=== PATIENT | female | born 1950 ===

== ENCOUNTER 2018-02-15 16:11 | Observation (INO) | payer MEDICARE, MEDICAID ==
--- OUTSIDE RECORDS SUMMARY | 2018-02-15 20:13 | XMS REPORT ---
:1950 External Reference #:[id number] Author Organization [facility] 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 [place] [address] Medicaid Expires: 2017 Policy Number: [id number] Medicaid Goldie Fernandez PayID: [id number] [address] [place] [address] Medicaid Expires: 2014 Policy Number: [id number] Medicaid Goldie Fernandez PayID: [id number] [address] [place] [address] Problems Date Description Provider Status Onset: 02/17/2016 Hyperlipidemia Kasie Shankar, Active MSN, PERIOPERATIVE ASSISTANT Onset: 02/17/2016 Essential hypertension Kasie Shankar, Active MSN, PERIOPERATIVE ASSISTANT Onset: 03/23/2016 Anxiety state Ben Gutiérrez M.D., Active FACC Onset: 03/23/2016 Dyspnea Ben Gutiérrez M.D., Active FACC Onset: 03/23/2016 Chronic obstructive pulmonary Ben Gutiérrez M.D., Active disease w (acute) exacerbation FACC Onset: 05/03/2017 Carbuncle of upper arm and Malissa Fisher M.D. Active forearm Onset: 05/09/2017 Palpitations Ben Gutiérrez M.D., Active FACC Onset: 05/09/2017 Malaise and fatigue Ben Gutiérrez M.D., Active FACC Onset: 05/09/2017 Chronic obstructive lung disease Ben Gutiérrez M.D. 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 Work Status Retired ADL's/IADL's Independent with all ADL's ADL's/IADL's Independent with all IADL's Cigarette Use Quit ETOH Use Denies alcohol use Smoking Patient is a former smoker 2011 quit Recreational Drug Use Marijuana Recreational Drug Use lsd Daily Caffeine Patient consumes minimal amounts of 2 cups daily caffeine Exercise Type/Frequency Does not exercise walking some Allergies, Adverse Reactions, Alerts Date Description Reaction Status Severity Comments 11/13/2017 NKDA active 12/15/2014 NKDA inactive Medications Medication Date Status Form Strength Qnty SIG Indications Ordering Provider Gabapentin 12/19 Active Tablets 600mg 90tab 1 tabs by mouth G62.9 Halley, s three times a Shelli, day PNP-BC, PERIOPERATIVE ASSISTANT, Ibclc Atorvastatin 09/26 Active Tablets 20mg 90tab 1 by mouth E78.5 Enedina Calcium s every day MD Riaz Duloxetine HCL 07/[address] 30mg 1 by mouth Natalia, Part every day Aris Leonardo Benzonatate 07/16 Active Capsules 200mg 60cap take 1 capsule J20.9 s 3 times daily Shelli, as needed for a PNP-BC, cough. PERIOPERATIVE ASSISTANT, Ibclc Acetaminophen 09/04 Active Tablets 500mg 90tab 2 tabs by mouth G62.9 s every 8 hours Shelli, as needed pain, PNP-BC, mdd=3g PERIOPERATIVE ASSISTANT, Ibclc Breo Ellipta 07/19 Active Aerosol 200-25mcg 60uni Inhale One puff J44.9 Kheti, /2016 /Inh ts By Mouth Every MD Rehan Day Propranolol 06/05 Active Tablets 10mg 180ta take one tablet Halley bs by mouth twice Shelli, a day PNP-BC, PERIOPERATIVE ASSISTANT, Ibclc Omeprazole 06/05 Active Capsules 20mg 180ca take one DR ps capsule by Shelli, mouth twice a PNP-BC, day 30 minutes PERIOPERATIVE ASSISTANT, before meals Ibclc for gastroesophagea l reflux disease Incruse 05/15 Active Aerosol 62.5mcg/I 30uni Inhale 1 puff J43.2 Kheti, Ellip nh ts Once Daily MD Rehan Clonazepam Active Tablets 0.5mg 1 po tid prn Unknown /0000 Aspirin Adult Active Tablets 81mg 1 by mouth Unknown Low Dose /0000 DR every day Viibryd Active Tablets 10mg one tablet by Unknown /0000 mouth every day x 7 days, then two by mouth every day x 7 days Mupirocin 05/03 Hx Ointment 2% 22gm apply to S21.001A affected area Malissa, three times a M.D. day Azithromycin 02/12 Hx Tablets 250mg 6tabs 1 tab take 2 tabs x daily Malissa, - days then 1 for M.D. 02/20 Hydroxyzine 12/26 Hx Tablets 25mg 60tab 1 tab by mouth L30.9 Clune, HCL s every 4 hours Jenniferl - as needed for eigh, PERIOPERATIVE ASSISTANT 01/17 itching *june sedating Gabapentin 10/17 Hx Capsules 400mg 270ca take one G62.9 ps capsule by Shelli, - mouth three PNP-BC, 12/19 times a day PERIOPERATIVE ASSISTANT, /2018 Ibclc Gabapentin 09/04 Hx Capsules 300mg 60cap 1 tab by mouth G62.9 Natalia, s three times Malissa, - M.D. 10/17 Golytely 04/17 Hx Solution 236gm 4000m drink half the Z. Rec l evening before , Paul, - and half the 06/05 morning of the procedure (1 cup every 10') Dulcolax 04/17 Hx Tablets 5mg 4tabs [address] fung 8pm the day , Paul, - before the 06/05 procedure Magnesium 04/17 Hx Solution 1.745GM/3 296ml Z01.21 0ML , Paul, - 06/05 Azithromycin 03/29 Hx Tablets 250mg 6tabs take 2 tablets J44.0 Natalia by mouth one Malissa, - time for M.D. 04/03 infection then take 1 tablet by mouth daily for 4 days for infection Prednisone 03/29 Hx Tablets 20mg 10tab take 2 tablet J44.0 Natalia s by mouth daily Malissa, - for 5 days for M.D. 04/03 COPD exacerbation Sulfamethoxazo 03/08 Hx Tablets 800-160mg 6tabs take 1 tablet Natalia, /Trimethopri by mouth every Malissarashi DS - 12 hours for 3 M.D. 03/11 days for urinary tract infection Isosorbide 02/16 Hx Tablets 10mg 30tab 1 by mouth R07.9 Shankar, Mononitrate s every day Kasie - Simonetta 03/23 , MSN, PERIOPERATIVE ASSISTANT Prednisone 05/15 Hx Tablets 10mg 20tab take 40 mg once J43.2 Kimmy, s daily for 5 MD Rehan days. Levofloxacin 05/15 Hx Tablets 750mg 5tabs Take 1 tablet J43.2 Kimmy, daily for 5 MD Rehan days. Cymbalta [address] 30mg 1 by mouth Unknown /0000 Part every day Atrovent HFA Hx Aerosol 17mcg/Act inhale 2 puffs Unknown /0000 four times a day if needed Advair Diskus 00 Hx Aerosol 500-50mcg 1 puff twice a Unknown /0000 /Dose day - 07/19 Dulox[address] HCL Hx Caps DR 30mg 1 by mouth Unknown /0000 Part every day Omeprazole Hx Capsules 20mg 1 by mouth Unknown /0000 DR every day - 03/06 Ranitidine HCL Hx Capsules 150mg 1 by mouth Unknown /0000 twice a day prn - 06/05 Propranolol Hx Tablets 10mg take 1 tablet Unknown HCL /0000 by mouth twice - a day 06/05 Ventolin HFA Hx Aerosol 108(90Bas 8gm take 1-2 puffs Natalia, /0000 e) every 6 hours Gerardo Leonardo/Janusz as needed for M.DMonica 07/25 shortness of /2018 breath. Trintellix Hx Tablets 20mg Unknown /0000 - 03/06 Meloxicam Hx Tablets 15mg 30tab 1 by mouth Natalia, /0000 s every day Aris Leonardo Levofloxacin Hx Tablets 750mg 1 by mouth Unknown /0000 every day until gone Viibryd Hx Tablets 40mg 1 by mouth Unknown /0000 every day - 01/17 Lamotrigine ER Hx Tablets 25mg 1 po q hs , Unknown /0000 ER 24HR tapering dose - 03/29 Lamotrigine ER Hx Tablets 25mg Unknown /0000 ER 24HR - 04/17 Lamotrigine Hx Tablets 25mg 1 po bid John, / Karissa - V., WARM IN WORKER 09/04 Ranitidine HCL Hx Tablets 150mg Gallerani /0000 , ALISA Gutiérrez Oxygen /00 Hx night only Unknown /0000 - 07/25 Duloxetine HCL Hx Caps DR 20mg 1 po qd Unknown /0000 Part - 07/18 Quetiapine Hx Tablets 25mg John, Fumarate /0000 Karissa - V., WARM IN WORKER 01/17 Quetiapine Hx Tablets 25mg take 1 by mouth Unknown Fumarate /0000 at bedtime - 05/03 Immunizations CPT Code Status Date Vaccine Lot # [id number] Given 10/12/2017 Influenza High Dose [id number] Given 10/17/2016 Influenza High Dose [id number] Vital Signs Date Vital Result Comment 01/20/2018 BP Systolic 130 mmHg BP Diastolic 68 mmHg Body Temperature 98.1 F Heart Rate 63 /min O2 % BldC Oximetry 94 % Pain Level 0 12/19/2017 BP Systolic Sitting Left Arm 110 mmHg BP Diastolic Sitting Left Arm 68 mmHg Body Temperature 97.9 F Heart Rate 65 /min Weight 202.00 lb O2 % BldC Oximetry 92 % 11/13/2017 BP Systolic 116 mmHg BP Diastolic 60 mmHg Body Temperature 98.5 F Heart Rate 59 /min Height 63 inches 5'3" Weight 208.00 lb BMI (Body Mass Index) 36.8 kg/m2 BSA (Body Surface Area) 1.97 m2 Brule body weight in kilograms 52 O2 % BldC Oximetry 91 % Pain Level 2 09/26/2017 BP Systolic Sitting Left Arm 126 mmHg BP Diastolic Sitting Left Arm 78 mmHg Body Temperature 96.1 F Height 63 inches 5'3" Weight 202.25 lb BMI (Body Mass Index) 35.8 kg/m2 BSA (Body Surface Area) 1.94 m2 Brule body weight in kilograms 52 07/18/2017 BP Systolic Sitting Left Arm 118 mmHg BP Diastolic Sitting Left Arm 78 mmHg Body Temperature 97.5 F Heart Rate 74 /min Height 63 inches 5'3" Weight 201.00 lb BMI (Body Mass Index) 35.6 kg/m2 BSA (Body Surface Area) 1.94 m2 Brule body weight in kilograms 52 07/16/2017 BP Systolic Sitting Left Arm 103 mmHg BP Diastolic Sitting Left Arm 70 mmHg Body Temperature 97.8 F Heart Rate 58 /min Respiratory Rate 18 /min Height 63 inches 5'3" Weight 200.00 lb BMI (Body Mass Index) 35.4 kg/m2 BSA (Body Surface Area) 1.93 m2 Brule body weight in kilograms 52 O2 % BldC Oximetry 93 % 05/09/2017 BP Systolic Sitting Left Arm 110 mmHg BP Diastolic Sitting Left Arm 72 mmHg Heart Rate 56 /min Respiratory Rate 16 /min Height 63 inches 5'3" Weight 195.00 lb BMI (Body Mass Index) 34.5 kg/m2 BSA (Body Surface Area) 1.91 m2 Brule body weight in kilograms 52 05/03/2017 BP Systolic 122 mmHg BP Diastolic 78 mmHg Body Temperature 97.4 F Heart Rate 62 /min Height 63 inches 5'3" Weight 198.00 lb BMI (Body Mass Index) 35.1 kg/m2 BSA (Body Surface Area) 1.93 m2 Brule body weight in kilograms 52 O2 % BldC Oximetry 93 % 03/27/2017 BP Systolic Sitting Left Arm 128 mmHg BP Diastolic Sitting Left Arm 82 mmHg Heart Rate 55 /min Respiratory Rate 16 /min Height 63 inches 5'3" Weight 197.00 lb BMI (Body Mass Index) 34.9 kg/m2 BSA (Body Surface Area) 1.92 m2 Brule body weight in kilograms 52 02/20/2017 BP Systolic Sitting Left Arm 120 mmHg BP Diastolic Sitting Left Arm 82 mmHg Body Temperature 97.6 F Height 63 inches 5'3" Weight 198.25 lb with boots BMI (Body Mass Index) 35.1 kg/m2 BSA (Body Surface Area) 1.93 m2 Brule body weight in kilograms 52 01/17/2017 BP Systolic 128 mmHg BP Diastolic 80 mmHg Heart Rate 88 /min Height 63 inches 5'3" Weight 197.25 lb BMI (Body Mass Index) 34.9 kg/m2 BSA (Body Surface Area) 1.92 m2 Brule body weight in kilograms 52 01/14/2017 BP Systolic Sitting Left Arm 110 mmHg BP Diastolic Sitting Left Arm 70 mmHg Heart Rate 62 /min Respiratory Rate 16 /min Height 63 inches 5'3" Weight 197.00 lb BMI (Body Mass Index) 34.9 kg/m2 BSA (Body Surface Area) 1.92 m2 Brule body weight in kilograms 52 O2 % BldC Oximetry 93 % 12/26/2016 BP Systolic Sitting Left Arm 128 mmHg BP Diastolic Sitting Left Arm 76 mmHg Heart Rate 88 /min Respiratory Rate 20 /min Height 63 inches 5'3" Weight 201.00 lb BMI (Body Mass Index) 35.6 kg/m2 BSA (Body Surface Area) 1.94 m2 Brule body weight in kilograms 52 10/17/2016 BP Systolic Sitting Left Arm 146 mmHg large cuff BP Diastolic Sitting Left Arm 84 mmHg large cuff Height 63 inches 5'3" Weight 196.38 lb BMI (Body Mass Index) 34.8 kg/m2 BSA (Body Surface Area) 1.92 m2 Brule body weight in kilograms 52 09/04/2016 BP Systolic 136 mmHg BP Diastolic 74 mmHg Heart Rate 62 /min Height 63 inches 5'3" Weight 194.00 lb BMI (Body Mass Index) 34.4 kg/m2 BSA (Body Surface Area) 1.91 m2 Brule body weight in kilograms 52 07/24/2016 BP Systolic Sitting Left Arm 100 mmHg BP Diastolic Sitting Left Arm 70 mmHg Heart Rate 64 /min Respiratory Rate 18 /min Height 63 inches 5'3" Weight 196.00 lb BMI (Body Mass Index) 34.7 kg/m2 BSA (Body Surface Area) 1.92 m2 Brule body weight in kilograms 52 07/19/2016 BP Systolic Sitting Left Arm 118 mmHg BP Diastolic Sitting Left Arm 88 mmHg Heart Rate 66 /min Respiratory Rate 20 /min Height 63 inches 5'3" Weight 197.00 lb BMI (Body Mass Index) 34.9 kg/m2 BSA (Body Surface Area) 1.92 m2 Brule body weight in kilograms 52 O2 % BldC Oximetry 93 % 07/05/2016 BP Systolic Sitting Left Arm 112 mmHg BP Diastolic Sitting Left Arm 68 mmHg Body Temperature 97.9 F Heart Rate 58 /min Weight 198.00 lb O2 % BldC Oximetry 95 % Ra 06/05/2016 BP Systolic Sitting Left Arm 138 mmHg BP Diastolic Sitting Left Arm 70 mmHg Heart Rate 62 /min Height 63 inches 5'3" Weight 194.38 lb BMI (Body Mass Index) 34.4 kg/m2 BSA (Body Surface Area) 1.91 m2 Brule body weight in kilograms 52 04/17/2016 BP Systolic 140 mmHg BP Diastolic 74 mmHg Heart Rate 56 /min Weight 197.00 lb 03/29/2016 BP Systolic 138 mmHg BP Diastolic 70 mmHg Body Temperature 98.0 F Heart Rate 63 /min Respiratory Rate 18 /min Height 63 inches 5'3" Weight 197.00 lb BMI (Body Mass Index) 34.9 kg/m2 BSA (Body Surface Area) 1.92 m2 O2 % BldC Oximetry 94 % 2L AT Night 03/23/2016 BP Systolic Sitting Left Arm 120 mmHg BP Diastolic Sitting Left Arm 78 mmHg Heart Rate 60 /min Respiratory Rate 16 /min Height 63 inches 5'3" Weight 197.00 lb BMI (Body Mass Index) 34.9 kg/m2 BSA (Body Surface Area) 1.92 m2 03/06/2016 BP Systolic 146 mmHg BP Diastolic 78 mmHg BP Systolic Sitting Right Arm 128 mmHg recheck BP Diastolic Sitting Right Arm 78 mmHg recheck Body Temperature 97.6 F Heart Rate 53 /min Respiratory Rate 20 /min Height 63 inches 5'3" Weight 197.00 lb BMI (Body Mass Index) 34.9 kg/m2 BSA (Body Surface Area) 1.92 m2 Brule body weight in kilograms 52 O2 % BldC Oximetry 95 % 02/17/2016 BP Systolic Sitting Left Arm 140 mmHg BP Diastolic Sitting Left Arm 80 mmHg Heart Rate 58 /min Respiratory Rate 16 /min Height 62 inches 5'2" Weight 200.00 lb BMI (Body Mass Index) 36.6 kg/m2 BSA (Body Surface Area) 1.91 m2 02/14/2016 BP Systolic Sitting Left Arm 128 mmHg BP Diastolic Sitting Left Arm 64 mmHg Heart Rate 55 /min Respiratory Rate 16 /min Height 62 inches 5'2" Weight 200.00 lb BMI (Body Mass Index) 36.6 kg/m2 BSA (Body Surface Area) 1.91 m2 O2 % BldC Oximetry 93 % Room Air 01/27/2016 BP Systolic Sitting Left Arm 133 mmHg BP Diastolic Sitting Left Arm 74 mmHg Heart Rate 53 /min Respiratory Rate 18 /min Height 62 inches 5'2" Weight 197.00 lb BMI (Body Mass Index) 36.0 kg/m2 BSA (Body Surface Area) 1.90 m2 08/16/2015 BP Systolic Sitting Right Arm 98 mmHg BP Diastolic Sitting Right Arm 64 mmHg Heart Rate 57 /min Height 62 inches 5'2" Weight 199.00 lb BMI (Body Mass Index) 36.4 kg/m2 BSA (Body Surface Area) 1.91 m2 Brule body weight in kilograms 50 O2 % BldC Oximetry 90 % 05/16/2015 BP Systolic Sitting Left Arm 112 mmHg BP Diastolic Sitting Left Arm 72 mmHg Heart Rate 63 /min Respiratory Rate 20 /min Height 43908 inches 5260'8" Weight 193.00 lb BMI (Body Mass Index) 0.0 kg/m2 BSA (Body Surface Area) 285.42 m2 O2 % BldC Oximetry 92 % 12/15/2014 BP Systolic Sitting Left Arm 128 mmHg BP Diastolic Sitting Left Arm 70 mmHg Heart Rate 64 /min Respiratory Rate 22 /min Height 65586 inches 5260'8" Weight 192.00 lb BMI (Body Mass Index) 0.0 kg/m2 BSA (Body Surface Area) 284.79 m2 Results Test Date Test Result H/L Range Note Xray 01/20/2018 RMP, Hip, RT, Ap & <pending> Lateral Including Pelvis Basic Metabolic Panel 11/01/2017 Glucose 93 mg/dL 74-106 1 BUN 9 mg/dL 7-18 1 Creatinine 0.7 mg/dL 0.6-1.3 1 Glom Filtration Rate, Estimate >60 mL/min >60 1 If >60 mL/min >60 1, 2 BUN/Creat 12.8 ratio 1 Sodium 141 mmol/L 136-145 1 Potassium 4.3 mmol/L 3.5-5.1 1 Chloride 104 mmol/L 98-107 1 Carbon Dioxide 30 mmol/L 21-32 1 Anion Gap 7 mEq/L Low 8-16 1 Calcium 8.4 mg/dL Low 8.5-10.1 1 CBC 10/31/2017 White Blood Count 13.9 K/uL High 3.1-10.7 1 Red Blood Count 3.49 M/uL Low 3.90-5.40 1 Hemoglobin 10.1 gm/dL Low 11.6-15.8 1 Hematocrit 32.6 % Low 36.0-46.1 1 Mean Cell Volume 93.4 fl 80.9-99.0 1 Mean Corpuscular HGB 28.9 pg 25.9-32.7 1 Mean Corpuscular HGB Conc 31.0 g/dL 30.8-34.3 1 Platelet Count 363 K/uL High 155-360 1 Red Cell Distri Width %CV 14.7 % High 11.7-14.4 1 Mean Platelet Volume 10.1 fL 8.9-12.4 1 Basic Metabolic Panel 10/31/2017 Glucose 95 mg/dL 74-106 1 BUN 13 mg/dL 7-18 1 Creatinine 0.7 mg/dL 0.6-1.3 1 Glom Filtration Rate, Estimate >60 mL/min >60 1 If >60 mL/min >60 1, 3 BUN/Creat 18.5 ratio 1 Sodium 141 mmol/L 136-145 1 Potassium 4.1 mmol/L 3.5-5.1 1 Chloride 104 mmol/L 98-107 1 Carbon Dioxide 31 mmol/L 21-32 1 Anion Gap 6 mEq/L Low 8-16 1 Calcium 8.0 mg/dL Low 8.5-10.1 1 Ua RFX Micro & Culture II 10/30/2017 Urine Color YELLOW Yellow 1 Urine Clarity CLEAR Clear 1 Urine Glucose - Dipstick NEGATIVE mg/dL Negative 1 Urine Bilirubin - Dipstick NEGATIVE Negative 1 Urine Ketone NEGATIVE mg/dL Negative 1 Urine Specific Edson <=1.005 Low 1.010-1.030 1 Urine Blood TRACE Negative 1 Urine PH 6.0 Low 6.5-7.5 1 Urine Protein - Dipstick NEGATIVE mg/dL Negative 1 Urine Urobilinogen - Dipstick 0.2 E.U./dL 0.2-1.0 1 Urine Nitrite - Dipstick NEGATIVE Negative 1 Urine Leuk Esterase NEGATIVE Negative 1 Source: URINE, CLEAN CAT <SEE NOTE> 1, 4 CBC 10/30/2017 White Blood Count 15.2 K/uL High 3.1-10.7 1 Red Blood Count 3.35 M/uL Low 3.90-5.40 1 Hemoglobin 9.9 gm/dL Low 11.6-15.8 1 Hematocrit 30.9 % Low 36.0-46.1 1 Mean Cell Volume 92.2 fl 80.9-99.0 1 Mean Corpuscular HGB 29.6 pg 25.9-32.7 1 Mean Corpuscular HGB Conc 32.0 g/dL 30.8-34.3 1 Platelet Count 325 K/uL 155-360 1 Red Cell Distri Width %CV 14.4 % 11.7-14.4 1 Mean Platelet Volume 10.1 fL 8.9-12.4 1 Basic Metabolic Panel 10/30/2017 Glucose 93 mg/dL 74-106 1 BUN 12 mg/dL 7-18 1 Creatinine 0.8 mg/dL 0.6-1.3 1 Glom Filtration Rate, Estimate >60 mL/min >60 1 If >60 mL/min >60 1, 5 BUN/Creat 15.0 ratio 1 Sodium 139 mmol/L 136-145 1 Potassium 3.3 mmol/L Low 3.5-5.1 1 Chloride 101 mmol/L 98-107 1 Carbon Dioxide 30 mmol/L 21-32 1 Anion Gap 8 mEq/L 8-16 1 Calcium 8.2 mg/dL Low 8.5-10.1 1 CBC 10/29/2017 White Blood Count 17.0 K/uL High 3.1-10.7 1 Red Blood Count 3.53 M/uL Low 3.90-5.40 1 Hemoglobin 10.3 gm/dL Low 11.6-15.8 1 Hematocrit 33.2 % Low 36.0-46.1 1 Mean Cell Volume 94.1 fl 80.9-99.0 1 Mean Corpuscular HGB 29.2 pg 25.9-32.7 1 Mean Corpuscular HGB Conc 31.0 g/dL 30.8-34.3 1 Platelet Count 311 K/uL 155-360 1 Red Cell Distri Width %CV 14.9 % High 11.7-14.4 1 Mean Platelet Volume 10.2 fL 8.9-12.4 1 Basic Metabolic Panel 10/29/2017 Glucose 95 mg/dL 74-106 1 BUN 12 mg/dL 7-18 1 Creatinine 0.9 mg/dL 0.6-1.3 1 Glom Filtration Rate, Estimate >60 mL/min >60 1 If >60 mL/min >60 1, 6 BUN/Creat 13.3 ratio 1 Sodium 140 mmol/L 136-145 1 Potassium 3.3 mmol/L Low 3.5-5.1 1 Chloride 102 mmol/L 98-107 1 Carbon Dioxide 26 mmol/L 21-32 1 Anion Gap 12 mEq/L 8-16 1 Calcium 8.0 mg/dL Low 8.5-10.1 1 Hemoglobin/Hematocrit 10/28/2017 Hemoglobin 10.9 gm/dL Low 11.6-15.8 1 Hematocrit 34.6 % Low 36.0-46.1 1 Hemoglobin/Hematocrit 10/27/2017 Hemoglobin 11.9 gm/dL 11.6-15.8 1 Hematocrit 37.7 % 36.0-46.1 1 Basic Metabolic Panel 10/27/2017 Glucose 160 mg/dL High 74-106 1 BUN 7 mg/dL 7-18 1 Creatinine 0.8 mg/dL 0.6-1.3 1 Glom Filtration Rate, Estimate >60 mL/min >60 1 If >60 mL/min >60 1, 7 BUN/Creat 8.7 ratio 1 Sodium 140 mmol/L 136-145 1 Potassium 4.1 mmol/L 3.5-5.1 1 Chloride 108 mmol/L High 98-107 1 Carbon Dioxide 26 mmol/L 21-32 1 Anion Gap 6 mEq/L Low 8-16 1 Calcium 8.1 mg/dL Low 8.5-10.1 1 CBC W/Automated Diff 10/27/2017 White Blood Count 13.6 K/uL High 3.1-10.7 1 Red Blood Count 4.31 M/uL 3.90-5.40 1 Hemoglobin 12.6 gm/dL 11.6-15.8 1 Hematocrit 39.9 % 36.0-46.1 1 Mean Cell Volume 92.6 fl 80.9-99.0 1 Mean Corpuscular HGB 29.2 pg 25.9-32.7 1 Mean Corpuscular HGB Conc 31.6 g/dL 30.8-34.3 1 Platelet Count 342 K/uL 155-360 1 Red Cell Distri Width SD 49.1 fl High 3-47 1 Red Cell Distri Width %CV 14.9 % High 11.7-14.4 1 Mean Platelet Volume 10.1 fL 8.9-12.4 1 Neut% 68.0 % 40.4-72.8 1 Lymph % 21.7 % 20.0-42.0 1 [place] % 6.4 % 4.3-13.2 1 Eo% 3.6 % 0.0-6.6 1 Bas% 0.3 % 0.0-1.1 1 Neut# 9.25 K/uL High 1.8-7.0 1 Lymph # 2.95 K/uL 1.0-4.0 1 [place] # 0.87 K/uL 0.3-0.9 1 Eos # 0.49 K/uL 0.0-0.5 1 Baso # 0.04 K/uL 0.0-0.1 1 Basic Metabolic Panel 10/27/2017 Glucose 117 mg/dL High 74-106 1 BUN 8 mg/dL 7-18 1 Creatinine 0.8 mg/dL 0.6-1.3 1 Glom Filtration Rate, Estimate >60 mL/min >60 1 If >60 mL/min >60 1, 8 BUN/Creat 10.0 ratio 1 Sodium 142 mmol/L 136-145 1 Potassium 3.6 mmol/L 3.5-5.1 1 Chloride 106 mmol/L 98-107 1 Carbon Dioxide 27 mmol/L 21-32 1 Anion Gap 9 mEq/L 8-16 1 Calcium 8.2 mg/dL Low 8.5-10.1 1 Blood Culture 10/27/2017 Blood Culture Aerobic NO GROWTH: FINAL <SEE NOTE> 1, 9 Blood Culture Anaerobic NO GROWTH: FINAL <SEE NOTE> 1, 10 Laboratory test finding 10/27/2017 Troponin-I 0.019 ng/mL 1, 11 Blood Culture 10/26/2017 Blood Culture Aerobic NO GROWTH: FINAL 1, 12 <SEE NOTE> Blood Culture Anaerobic NO GROWTH: FINAL <SEE NOTE> 1, 13 Ua RFX Micro & Culture II 10/26/2017 Urine Color YELLOW Yellow 1 Urine Clarity CLEAR Clear 1 Urine Glucose - Dipstick NEGATIVE mg/dL Negative 1 Urine Bilirubin - Dipstick NEGATIVE Negative 1 Urine Ketone NEGATIVE mg/dL Negative 1 Urine Specific Edson 1.010 1.010-1.030 1 Urine Blood SMALL Negative 1 Urine PH 6.5 6.5-7.5 1 Urine Protein - Dipstick NEGATIVE mg/dL Negative 1 Urine Urobilinogen - Dipstick 0.2 E.U./dL 0.2-1.0 1 Urine Nitrite - Dipstick NEGATIVE Negative 1 Urine Leuk Esterase NEGATIVE Negative 1 Urine RBC 5-10 rbc/hpf High 0-2 1 Urine WBC 2-5 wbc/hpf 0-7 1 Urine Epithelial Cells FEW /lpf None Seen 1 Urine Bacteria FEW None Seen 1 Urine Amorph Sediment SMALL Negative 1 Source: URINE, SHAH CAT <SEE NOTE> 1, 14 Laboratory test finding 10/26/2017 Troponin-I 0.018 ng/mL 1, 15 Comprehensive Metabolic Panel 09/26/2017 Glucose 81 mg/dL 74-106 16 BUN 17 mg/dL 7-18 16 Creatinine 1.1 mg/dL 0.6-1.3 16 Glom Filtration Rate, Estimate 52 mL/min >60 16 If >60 mL/min >60 16, 17 BUN/Creat 15.4 ratio 16 Sodium 140 mmol/L 136-145 16 Potassium 4.8 mmol/L 3.5-5.1 16 Chloride 103 mmol/L 98-107 16 Carbon Dioxide 25 mmol/L 21-32 16 Anion Gap 12 mEq/L 8-16 16 Calcium 8.9 mg/dL 8.5-10.1 16 Total Protein 7.5 g/dL 6.4-8.2 16 Albumin 3.8 g/dL 3.4-5.0 16 Globulin 3.7 g/dL 1.9-4.3 16 Alb/Glob 1.0 ratio 16 Bilirubin,Total 0.3 mg/dL 0.2-1.0 16 Sgot/Ast 30 U/L 15-37 16 SGPT/Alt 26 U/L 12-78 16 Alkaline Phosphatase 128 U/L High 45-117 16 Vitamin B12 And Folate 09/26/2017 Vitamin B12 256 pg/mL 193-986 16 Folic Acid 10.9 ng/mL 3.1-17.5 16 CBS W/Automated Diff 09/26/2017 White Blood Count 10.0 K/uL 3.1-10.7 16 Red Blood Count 4.90 M/uL 3.90-5.40 16 Hemoglobin 14.3 gm/dL 11.6-15.8 16 Hematocrit 44.5 % 36.0-46.1 16 Mean Cell Volume 90.8 fl 80.9-99.0 16 Mean Corpuscular HGB 29.2 pg 25.9-32.7 16 Mean Corpuscular HGB Conc 32.1 g/dL 30.8-34.3 16 Platelet Count 423 K/uL High 155-360 16 Red Cell Distri Width SD 49.8 fl High 3-47 16 Red Cell Distri Width %CV 15.4 % High 11.7-14.4 16 Mean Platelet Volume 10.3 fL 8.9-12.4 16 Neut% 46.2 % 40.4-72.8 16 Lymph % 38.7 % 20.0-42.0 16 [place] % 12.3 % 4.3-13.2 16 Eo% 2.5 % 0.0-6.6 16 Bas% 0.3 % 0.0-1.1 16 Neut# 4.64 K/uL 1.8-7.0 16 Lymph # 3.89 K/uL 1.0-4.0 16 [place] # 1.23 K/uL High 0.3-0.9 16 Eos # 0.25 K/uL 0.0-0.5 16 Baso # 0.03 K/uL 0.0-0.1 16 Magnesium 07/18/2017 Magnesium 2.3 mg/dL 1.8-2.4 18 Reflex add FT3? Y 18 Reflex add FT4? Y 18 LDL Cholesterol Profile 07/18/2017 Cholesterol 175 mg/dL <200 18, 19 Triglycerides 174 mg/dL High <150 18, 20 HDL Cholesterol 42 mg/dL >40 18, 21 LDL-Cholesterol 98 mg/dL < 100 18, 22 Reflex add FT3? Y 18 Reflex add FT4? Y 18 Comprehensive Metabolic Panel 07/18/2017 Glucose 110 mg/dL High 74-106 18 BUN 15 mg/dL 7-18 18 Creatinine 0.9 mg/dL 0.6-1.3 18 Glom Filtration Rate, Estimate >60 mL/min >60 18 If >60 mL/min >60 18, 23 BUN/Creat 16.6 ratio 18 Sodium 138 mmol/L 136-145 18 Potassium 4.1 mmol/L 3.5-5.1 18 Chloride 105 mmol/L 98-107 18 Carbon Dioxide 26 mmol/L 21-32 18 Anion Gap 7 mEq/L Low 8-16 18 Calcium 8.8 mg/dL 8.5-10.1 18 Total Protein 7.8 g/dL 6.4-8.2 18 Albumin 3.3 g/dL Low 3.4-5.0 18 Globulin 4.5 g/dL High 1.9-4.3 18 Alb/Glob 0.7 ratio 18 Bilirubin,Total 0.2 mg/dL 0.2-1.0 18 Sgot/Ast 21 U/L 15-37 18 SGPT/Alt 22 U/L 12-78 18 Alkaline Phosphatase 147 U/L High 45-117 18 Reflex add FT3? Y 18 Reflex add FT4? Y 18 TSH Reflex FT4 And/Or FT3 07/18/2017 Thyroid Stim Hormone 0.95 uIU/mL 0.30-4.20 18 Reflex add FT3? Y 18 Reflex add FT4? Y 18 Nocturnal Oximetry 05/22/2017 Low Oximetry 88 % Low 93-98 24 Fio2 21 21-100 24 Heart Rate 83 BPM 24 Duration Of Study 569 MINUTES 24 Total Time Below 88% 0 MINUTES 24 Continuous Oximetry 05/21/2017 Oximetry 93 % 93-98 24 Fio2 21 21-100 24 Heart Rate 97 BPM 24 Patient Status RESTING 24 Laboratory test 12/26/2016 Antinuclear Negative . 25, 26 finding Antibodies, Ifa Laboratory test 12/26/2016 Thyroid Stim Hormone 1.26 uIU/mL 0.30-4.20 25 , 27 finding Rheumatoid Factor Screen < 10.0 IU/mL 0.0-15.0 25, 28 Lyme Total AB/Reflex To WB < 0.91 ISR 0.00-0.90 25, 29 Protein Electro.,S 12/26/2016 Protein,Total,Serum 6.8 g/dL 6.0-8.5 25 Albumin 3.3 g/dL 2.9-4.4 25 Hujir-7-Ohknlxof 0.3 g/dL 0.0-0.4 25 Ntqjv-9-Ylbgdazb 0.8 g/dL 0.4-1.0 25 Beta Globulin 1.3 g/dL 0.7-1.3 25 Gamma Globulin 1.0 g/dL 0.4-1.8 25 M-Nicola Not Observed g/dL Not Observed 25 Globulin, Total 3.5 g/dL 2.2-3.9 25 A/G Ratio 0.9 0.7-1.7 25 Please Note: (SEE NOTE) 25, 30 P E Interpretation, Serum (SEE NOTE) 25, 31 Immunofixation,Serum 12/26/2016 Immunofixation Results (SEE NOTE) 25, 32 Immunoglobulin G,Quant,Serum 847 mg/dL 700-1600 25 Immunoglobulin A 301 mg/dL 87-352 25 Immunoglobulin M 66 mg/dL 26-217 25 Heavy Metals Profile I,Blood 12/26/2016 Lead,Blood 3 g/dL 0-19 25, 33 Arsenic,Blood 7 ug/L 2-23 25, 34 Mercury (B) 1.1 ug/L 0.0-14.9 25, 35 Laboratory test finding 12/26/2016 Vitamin B6 17.9 ug/L 2.0-32.8 25, 36 Laboratory test finding 12/26/2016 Bwqezntiqjx-5-Xveywxkng 50 U/L 14-82 25, 37 g Enzym CCP Igg/Iga Antibodies 12/26/2016 CCP Igg/Iga Antibodies 4 units 0-19 25 , 38 Glycohemoglobin A1c 10/17/2016 Glycohemoglobin (A1c) 6.0 % 4.2-6.3 39, 40 eAG 126 mg/dL 39 CBS W/Automated Diff 10/17/2016 White Blood Count 9.5 K/uL 3.1-10.7 39 Red Blood Count 4.54 M/uL 3.90-5.40 39 Hemoglobin 13.5 gm/dL 11.6-15.8 39 Hematocrit 41.4 % 36.0-46.1 39 Mean Cell Volume 91.2 fl 80.9-99.0 39 Mean Corpuscular HGB 29.7 pg 25.9-32.7 39 Mean Corpuscular HGB Conc 32.6 g/dL 30.8-34.3 39 Platelet Count 330 K/uL 150-400 39 Red Cell Distri Width SD 47.5 fl High 3-47 39 Red Cell Distri Width %CV 14.6 % High 11.7-14.4 39 Mean Platelet Volume 11.1 fL 8.9-12.4 39 Neut% 45.9 % 40.4-72.8 39 Lymph % 39.6 % 20.0-42.0 39 [place] % 11.7 % 4.3-13.2 39 Eo% 2.4 % 0.0-6.6 39 Bas% 0.4 % 0.0-1.1 39 Neut# 4.36 K/uL 1.8-7.0 39 Lymph # 3.76 K/uL 1.0-4.0 39 [place] # 1.11 K/uL High 0.3-0.9 39 Eos # 0.23 K/uL 0.0-0.5 39 Baso # 0.04 K/uL 0.0-0.1 39 Vitamin B12 And Folate 10/17/2016 Vitamin B12 297 pg/mL 193-986 39 Folic Acid 16.2 ng/mL 3.1-17.5 39 Comprehensive Metabolic Panel 10/17/2016 Glucose 70 mg/dL Low 74-106 39 BUN 15 mg/dL 7-18 39 Creatinine 0.9 mg/dL 0.6-1.3 39 Glom Filtration Rate, Estimate >60 mL/min >60 39 If >60 mL/min >60 39, 41 BUN/Creat 16.6 ratio 39 Sodium 139 mmol/L 136-145 39 Potassium 3.5 mmol/L 3.5-5.1 39 Chloride 102 mmol/L 98-107 39 Carbon Dioxide 30 mmol/L 21-32 39 Anion Gap 7 mEq/L Low 8-16 39 Calcium 8.9 mg/dL 8.5-10.1 39 Total Protein 7.4 g/dL 6.4-8.2 39 Albumin 3.5 g/dL 3.4-5.0 39 Globulin 3.9 g/dL 1.9-4.3 39 Alb/Glob 0.9 ratio 39 Bilirubin,Total 0.4 mg/dL 0.2-1.0 39 Sgot/Ast 16 U/L 15-37 39 SGPT/Alt 16 U/L 12-78 39 Alkaline Phosphatase 117 U/L 45-117 39 Liver Function Tests 03/23/2016 Total Protein 7.3 g/dL 6.4-8.2 42 Albumin 3.6 g/dL 3.4-5.0 42 Globulin 3.7 g/dL 1.9-4.3 42 Alb/Glob 1.0 ratio 42 Bilirubin,Total 0.6 mg/dL 0.2-1.0 42 Bilirubin,Direct 0.1 mg/dL 0.0-0.2 42 Bilirubin,Indirect 0.5 mg/dL 0.0-0.9 42 Sgot/Ast 18 U/L 15-37 42 SGPT/Alt 23 U/L 12-78 42 Alkaline Phosphatase 115 U/L 45-117 42 LDL Cholesterol Profile 03/23/2016 Cholesterol 191 mg/dL <200 42, 43 Triglycerides 163 mg/dL High <150 42, 44 HDL Cholesterol 52 mg/dL >40 42, 45 LDL-Cholesterol 106 mg/dL < 100 42, 46 Ast-GN67 03/08/2016 Nitrofurantoin <=16 Trimethoprim/Sulfamethoxazole <=20 Ampicillin >=32 Cefazolin <=4 Ampicillin/Sulbactam >=32 Ciprofloxacin >=4 Piperacillin/Tazobactam <=4 Ceftazidime <=1 Ceftriaxone <=1 Cefepime <=1 Levofloxacin >=8 Imipenem <=0.25 Gentamicin <=1 Tobramycin <=1 Urine Culture 03/06/2016 Urine Culture ESCHERICHIA COLI 47, 48 Quantity > 100,000 CFU/mL 47, 49 Urine Culture URETHRAL MEG 47 Quantity 10,000 - 50,000 <SEE NOTE> 47, 50 Ua Routine 03/06/2016 Urine Color YELLOW Yellow 47 Urine Clarity CLEAR Clear 47 Urine Glucose - Dipstick NEGATIVE mg/dL Negative 47 Urine Bilirubin - Dipstick NEGATIVE Negative 47 Urine Ketone TRACE mg/dL High Negative 47 Urine Specific Edson >=1.030 1.010-1.030 47 Urine Blood MODERATE Negative 47 Urine PH 6.0 Low 6.5-7.5 47 Urine Protein - Dipstick TRACE mg/dL Negative 47 Urine Urobilinogen - Dipstick 0.2 E.U./dL 0.2-1.0 47 Urine Nitrite - Dipstick NEGATIVE Negative 47 Urine Leuk Esterase TRACE Negative 47 Urine RBC 2-5 rbc/hpf 0-2 47 Urine WBC 10-20 wbc/hpf High 0-7 47 Urine Epithelial Cells FEW /lpf None Seen 47 Urine Bacteria MODERATE None Seen 47 Urine Hyaline Cast 0-2 #/lpf None Seen 47 Urine Mucus MODERATE None Seen 47 1 HIP FRACTURE, NEAR SYNCOPE 2 Note: Persistent reduction for 3 months or more in an eGFR <60 mL/min/1.73 m2 defines CKD. Patients with eGFR values >/=60 mL/min/1.73 m2 may also have CKD if evidence of persistent proteinuria is present. The original MDRD equation for estimated GFR is not valid for patients less than 18 years of age. Additional information may be found at [email or web address]. 3 Note: Persistent reduction for 3 months or more in an eGFR <60 mL/min/1.73 m2 defines CKD. Patients with eGFR values >/=60 mL/min/1.73 m2 may also have CKD if evidence of persistent proteinuria is present. The original MDRD equation for estimated GFR is not valid for patients less than 18 years of age. Additional information may be found at [email or web address]. 4 URINE, CLEAN CATCH 5 Note: Persistent reduction for 3 months or more in an eGFR <60 mL/min/1.73 m2 defines CKD. Patients with eGFR values >/=60 mL/min/1.73 m2 may also have CKD if evidence of persistent proteinuria is present. The original MDRD equation for estimated GFR is not valid for patients less than 18 years of age. Additional information may be found at [email or web address]. 6 Note: Persistent reduction for 3 months or more in an eGFR <60 mL/min/1.73 m2 defines CKD. Patients with eGFR values >/=60 mL/min/1.73 m2 may also have CKD if evidence of persistent proteinuria is present. The original MDRD equation for estimated GFR is not valid for patients less than 18 years of age. Additional information may be found at [email or web address]. 7 Note: Persistent reduction for 3 months or more in an eGFR <60 mL/min/1.73 m2 defines CKD. Patients with eGFR values >/=60 mL/min/1.73 m2 may also have CKD if evidence of persistent proteinuria is present. The original MDRD equation for estimated GFR is not valid for patients less than 18 years of age. Additional information may be found at [email or web address]. 8 Note: Persistent reduction for 3 months or more in an eGFR <60 mL/min/1.73 m2 defines CKD. Patients with eGFR values >/=60 mL/min/1.73 m2 may also have CKD if evidence of persistent proteinuria is present. The original MDRD equation for estimated GFR is not valid for patients less than 18 years of age. Additional information may be found at [email or web address]. 9 NO GROWTH: FINAL REPORT 10 NO GROWTH: FINAL REPORT 11 0.0 - 0.045 ng/mL: Normal 0.046 - 0.5 ng/mL: Suggestive 0.6 - 1.5 ng/mL: Consistent 12 NO GROWTH: FINAL REPORT 13 NO GROWTH: FINAL REPORT 14 URINE, SHAH CATHETER 15 0.0 - 0.045 ng/mL: Normal 0.046 - 0.5 ng/mL: Suggestive 0.6 - 1.5 ng/mL: Consistent 16 R19.5 R47.89 17 Note: Persistent reduction for 3 months or more in an eGFR <60 mL/min/1.73 m2 defines CKD. Patients with eGFR values >/=60 mL/min/1.73 m2 may also have CKD if evidence of persistent proteinuria is present. The original MDRD equation for estimated GFR is not valid for patients less than 18 years of age. Additional information may be found at [email or web address]. 18 E78.5 19 Reference Guidelines*: Desirable: ........... < 200 mg/dL Borderline High: ..... 200-239 mg/dL High: ................ >=240 mg/dL * The National Cholesterol Education Program (NCEP) 20 Reference Guidelines*: Normal: ............. < 150 mg/dL Borderline High: .... 150-199 mg/dL High: ............... 200-499 mg/dL Very High: .......... > 500 mg/dL * Source: National Cholesterol Education Program (NCEP) 21 Reference Guidelines*: Low HDL: ..... < 40 mg/dL Normal: ..... 40-60 mg/dL Desirable: ... > 60 mg/dL *The National Cholesterol Education Program(NCEP) 22 Reference Guidelines*: Optimal:........... <100 mg/dL Near Optimal....... 100-129 mg/dL Borderline High.... 130-159 mg/dL High............... 160-189 mg/dL Very High.......... >=190 mg/dL * Source: National Cholesterol Education Program (NCEP) 23 Note: Persistent reduction for 3 months or more in an eGFR <60 mL/min/1.73 m2 defines CKD. Patients with eGFR values >/=60 mL/min/1.73 m2 may also have CKD if evidence of persistent proteinuria is present. The original MDRD equation for estimated GFR is not valid for patients less than 18 years of age. Additional information may be found at [email or web address]. 24 R53.83 OTHER FATIGUE 25 R26.89 G62.89 R20.2 R27.8 R29.6 26 Negative <1:80 Borderline 1:80 Positive >1:80 A duplicate report has been generated due to demographic updates. 27 [facility] LEATHA ROJAS 28 [facility] HO[facility] 29 Negative <0.91 Equivocal 0.91 - 1.09 Positive >1.09 Performed at: [facility] [employer] [id number] Arm Rest Builder: Priya Lin MD, Phone: [phone] 30 Protein electrophoresis scan will follow via computer, mail, or picking supervisor delivery. 31 The SPE pattern appears essentially unremarkable. Evidence of monoclonal protein is not apparent. 32 An apparent normal immunofixation pattern. 33 Environmental Exposure: WHO Recommendation <20 Occupational Exposure: OSHA Lead Std 40 KIMBERLY 30 Detection Limit=1 34 Detection Limit=1 35 Environmental Exposure: <15.0 Occupational Exposure: KIMBERLY - Inorganic Mercury: 15.0 Detection Limit=1.0 Performed at: [facility] [employer] [id number] Arm Rest Builder: Priya Lin MD, Phone: [phone] Performed at: [facility] [address] [id number] Arm Rest Builder: Geo Mejía MD, Phone: [phone] 01/11/177: 36 This test was developed and its performance characteristics determined by [employer]. It has not been cleared or approved by the Food and Drug Administration. Performed at: - [address] [id number] Arm Rest Builder: Geo Mejía MD, Phone: [phone] 37 [facility] CRYSTALLEATHA 38 Negative <20 Weak positive 20 - 39 Moderate positive 40 - 59 Strong positive >59 39 G62.9 40 Elevated levels of HbA1c suggest the need for more aggressive treatment of glycemia. The [place] [employer] recommends that a primary goal of therapy should be a HbA1c of <7% and that physicians should re-evaluate the treatment regimen in patients with HbA1c values consistently >8%. 41 Note: Persistent reduction for 3 months or more in an eGFR <60 mL/min/1.73 m2 defines CKD. Patients with eGFR values >/=60 mL/min/1.73 m2 may also have CKD if evidence of persistent proteinuria is present. The original MDRD equation for estimated GFR is not valid for patients less than 18 years of age. Additional information may be found at www.[email or web address]. 42 E78.5 43 Reference Guidelines*: Desirable: ........... < 200 mg/dL Borderline High: ..... 200-239 mg/dL High: ................ >=240 mg/dL * The National Cholesterol Education Program (NCEP) 44 Reference Guidelines*: Normal: ............. < 150 mg/dL Borderline High: .... 150-199 mg/dL High: ............... 200-499 mg/dL Very High: .......... > 500 mg/dL * Source: National Cholesterol Education Program (NCEP) 45 Reference Guidelines*: Low HDL: ..... < 40 mg/dL Normal: ..... 40-60 mg/dL Desirable: ... > 60 mg/dL *The National Cholesterol Education Program(NCEP) 46 Reference Guidelines*: Optimal:........... <100 mg/dL Near Optimal....... 100-129 mg/dL Borderline High.... 130-159 mg/dL High............... 160-189 mg/dL Very High.......... >=190 mg/dL * Source: National Cholesterol Education Program (NCEP) 47 R31.9 48 ESCHERICHIA COLI 49 > 100,000 CFU/mL 50 10,000 - 50,000 CFU/mL Procedures Date CPT Code Description Status Comment 01/20/2018 22356 Radiologic Exam Hip Completed Unilateral With Pelvis 2-3 Views 12/19/2017 94616 Brief Emotional/Behav Completed Assessment W/ Scoring Doc Per Standard Inst 11/13/2017 86309 Radiologic Exam Hip Completed Unilateral With Pelvis 2-3 Views 10/27/2017 26394 Hemiarthroplasty open Completed internal fixation or prosthetic replacement 08/13/2017 Bone Mineral Density Test Completed Document: 07/31/17 - Dexa Scan Resultosteopenia 07/25/2017 40043 Eye Exam Est Patient Completed Comprehensive 05/21/2017 16219 Echocardiogram Complete Completed 05/17/2017 Mammogram Completed Document: 05/17/17 - Screening Mammogram Bilateralbirads 2 04/16/2017 08648 Event Monitor Inter/Review Completed Only 03/27/2017 32733 EKG-Tracing And Report Completed 07/25/2016 56800 EGD With Biopsy Completed 07/03/2016 16961 Needle Electromyography Completed Complete, Five Or More Muscles Studied 07/03/2016 52348 Nerve Conduction 5-6 Studies Completed 04/27/2016 21473 Eye Exam New Patient Completed Comprehensive 02/23/2016 13285 Bronchospasm Provocation Completed Evaluation Multi Spirometric Determinati 02/23/2016 07529 Spirometry Completed 01/31/2016 38682 Stress Test Interpre And Completed Report Only 01/31/2016 72320 Stress Test Physician Super Completed Only 01/31/2016 68826 Myocardial Imaging Completed Tomographic Multiple Study AT Rest Or Stress 01/27/2016 48569 EKG-Tracing And Report Completed 01/18/2016 13460 EKG Interpretation And Completed Report Only 01/17/2016 55559 EKG Interpretation And Completed Report Only 06/01/2015 Mammogram Completed 03/18/2015 85279 Bronchospasm Provocation Completed Evaluation Multi Spirometric Determinati 03/18/2015 41734 Spirometry Completed 02/11/2006 Colonoscopy Completed declines repeat Encounters Type Date Location Provider CPT E/M Dx Office Visit 12/19/2017 3:00p Family Medicine Shelli Rowley, PNP-, 33155 M25.551 PERIOPERATIVE ASSISTANT, Ibcl[facility] G62.9 Z96.641 F41.9 F34.1 Office Visit 09/26/2017 4:00p Family Medicine Malissa Fisher M.D. 72945 R51 R47.89 R19.5 E78.5 Office Visit 07/16/2017 1:45p [place] [address] J20.9 J44.9 K21.9 F17.211 Office Visit 05/09/2017 10:20a Cardiology Office Ben Gutiérrez 19550 R00.2 Aris, [facility] R53.83 J44.9 Office Visit 05/03/2017 1:30p Family Medicine Malissa Fisher M.D. 66418 L02.421 Office Visit 03/27/2017 10:40a Cardiology Office Kasie Shankar 68107 R00.2 Randee, VENKATESH, [facility] R07.9 E78.5 J44.9 Office Visit 02/20/2017 11:30a Family Medicine Malissa Fisher M.D. 48573 L02.421 L02.422 Office Visit 01/17/2017 10:45a Family Medicine Malissa Fisher M.D. 17030 K21.9 G62.9 Office Visit 01/14/2017 4:00p [place] [address] J44.9 R29.6 Z79.51 Z99.81 Office Visit 12/26/2016 1:15p Family Medicine Van Mendoza FNP 15623 L30.9 Office Visit 10/17/2016 10:45a Family Malissa Renae M.D. 28331 G62.9 R22.32 Z23 Office Visit 09/04/2016 10:45a Family Medicine Malissa Fisher M.D. 33183 G62.9 I10 K44.9 Office Visit 07/24/2016 9:45[place] [address] R49.0 R13.10 Office Visit 07/19/2016 3:30[place] [address] J44.9 F17.211 D38.1 Office Visit 07/05/2016 1:00p Family Medicine Conchita Rosales, 97907 R06.02 PERIOPERATIVE ASSISTANT-C K21.9 J44.9 Office Visit 06/05/2016 1:15p Family Medicine Conchita Rosales, 57280 K21.9 PERIOPERATIVE ASSISTANT-C R31.9 R20.2 Office Visit 04/17/2016 2:15[place] [address] Z12.11 Office Visit 03/29/2016 8:30a Family Medicine Conchita Rosales, 77870 J44.0 PERIOPERATIVE ASSISTANT-C Office Visit 03/23/2016 11:00a Cardiology Office Ben Gutiérrez, 15843 F41.9 MGriffin, [facility] J44.1 R06.02 E78.5 Office Visit 03/06/2016 11:00a Family Medicine Conchita Rosales, 72254 L85.3 PERIOPERATIVE ASSISTANT-C R31.9 I10 F41.9 Z71.1 Office Visit 02/17/2016 9:00a Cardiology Office Kasie Shankar, 26484 R07.9 MSN, PERIOPERATIVE ASSISTANT R06.02 E78.5 I10 Office Visit 02/14/2016 1:15p [place] [address] J44.9 D38.1 F17.211 Office Visit 01/27/2016 10:00a Cardiology Office Ben Gutiérrez, 09557 R06.02 MGriffin, [facility] R94.31 J44.1 Office Visit 08/16/2015 3:30[place] [address] J43.2 D38.1 F17.211 Office Visit 05/16/2015 2:30[place] [address] J43.2 R91.1 Office Visit 12/15/2014 3:00p [place] [address] J43.2 R91.1 Office Visit 12/08/2012 9:30a [facility] [place] [address] [place] [address] Plan of Care Future Appointment(s):01/30/2018 1:30 pm - Shelli Rowley PNP-BC, PERIOPERATIVE ASSISTANT, Ibclc at [facility]07/28/2018 11:00 am - Paul Marmolejo MD at [facility]09/10/ 2018 - Stefano Lao, MDM25.551 Pain in right hipFollow up:Follow-up in 4 months time with pre-clinic x-rays AP pelvis and lateral of the right hip.Z47.1 Aftercare following joint replacement surgeryNew Xrays:RMP, Hip, RT, Ap & Lateral Including Pelvis
[2018-02-15] MEDS ORDERED: NS 0.9% 1000 ML* 1,000 ML IV SCH (20:45)
[2018-02-15] MEDS ORDERED: Albuterol HFA INHALER* 8 gm MDI INH PRN (22:40)
[2018-02-15] MEDS ORDERED: clonazePAM TAB(*) 0.5 MG PO PRN (22:40)
[2018-02-15 22:50] LABS: ABS Basophils 0.2 10^3/ul (0-0.2); ABS Eosinophils 0.3 10^3/ul (0-0.6); ABS Lymphocytes 3.7 10^3/ul (1.0-4.8); ABS Monocytes 1.1 10^3/ul (0-0.8); ABS Neutrophils 5.6 10^3/ul (1.5-7.7); ABS Nucleated RBC 0 10^3/ul; Eosinophil % 3.2 %; Hematocrit 33 % (35-47); Hemoglobin 10.6 g/dl (12.0-16.0); Mean Corpuscular HGB Conc 32 g/dl (31-36); Mean Corpuscular Hemoglobin 27 pg (27-31); Mean Corpuscular Volume 84 fL (80-97); Nucleated Red Blood Cells % 0; Platelet Count 338 10^3/ul (150-450); Red Blood Count 3.94 10^6/ul (4.00-5.40); Red Cell Distribution Width 16 % (10.5-15); White Blood Count 10.8 10^3/ul (3.5-10.8)
[2018-02-15 23:05] LABS: Albumin 3.5 g/dL (3.2-5.2); Albumin/Globulin Ratio 1.3 (1-3); BUN/Creatinine Ratio 6.5 (8-20); Calcium 8.4 mg/dL (8.6-10.3); EGFR Non-African American 74.5 (>60); Globulin 2.6 g/dL (2-4); Total Bilirubin 0.3 mg/dL (0.2-1.0); Total Protein 6.1 g/dL (6.4-8.9)
--- NOTE | 2018-02-15 23:47 | HP ---
HISTORY AND PHYSICAL: ADDENDUM: PROBLEM: Colitis. With the patient's findings of diffuse abdominal tenderness and her CT findings at [place], wall thickening and subtle adjacent mesenteric changes noted adjacent to the cecum and proximal ascending colon with the differential including malignancy and colitis and in the setting of her being asplenic with an elevated leukocytosis, I would rather err on the side of caution and continue her on the Flagyl and ceftriaxone previously started at [facility] and then she was supposed to have stools collected there, but we can collect stool cultures here. We will continue the antibiotics until she is seen by GI and they have determined whether or not they feel she has colitis , but again with her being asplenic, I would rather err on the side of caution. Her bleed is likely diverticular and not colitis and today is day 2 of antibiotics. RELL NOBLE, FRANDY [id number]/[facility] #: [id number] AMANDA
[2018-02-16] MEDS: Gabapentin CAP(*) 400 MG PO SCH ×2 (00:13→08:22)
[2018-02-16] MEDS: metroNIDAZOLE IV 500 MG/100ML* 500 MG/100 ML BAG IVPB SCH ×2 (00:49→08:22)
[2018-02-16 02:09] LABS: Hematocrit 35 % (35-47)
--- NOTE | 2018-02-16 02:43 | HP ---
ADDENDUM NOW INCLUDED ON THIS REPORT CC: Dr. Eufemia Milligan * HISTORY AND PHYSICAL: DATE OF ADMISSION: 02/15/18 PRIMARY CARE PROVIDER: Dr. Eufemia Milligan. ATTENDING PHYSICIAN: Dr. Duane Alvarez * (dictated by Rell Noble NP). CHIEF COMPLAINT: Dark stools and diarrhea. HISTORY OF PRESENT ILLNESS: Ms. 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 The patient reports that since 02/10/18, she had been having diffuse abdominal discomfort, mainly in her epigastric area without nausea, vomiting, or diarrhea and she had been having normal stools. She then reported that yesterday, February 14, that she developed 2 large dark-colored stools with what appeared to be fresh blood around it. It is to note that she recently had hip surgery back in October of 2017 and had been taking 2 baby aspirin for DVT prophylaxis postoperatively. She got confused and did not stop the medication as instructed and continued to take it. She denies any fevers, chills, chest pain, shortness of breath. She did report having some nausea that has resolved in addition to diarrhea that has resolved. She feels as though her abdominal pain is improving. She presented to [facility] Emergency Room. She was noted to have a mild leukocytosis with a white blood cell count of 13.7. According to them, this is a chronic issue for her and felt to be secondary to her splenectomy. She had a normal H and H, but slightly lower than her baseline. She stated her baseline hemoglobin was between 13 to 14. It was repeated a few hours later and was 11.8 , down from 12.3 on admission. She had a CAT scan of her abdomen and pelvis showing wall thickening and several adjacent mesenteric changes noted adjacent to the cecum and proximal ascending colon. The attending at [facility] spoke with the nurse practitioner in the ER and the story that she got was completely different from the patient. Due to this, they were uncomfortable keeping the patient at [facility] as they do not have GI coverage. Initially, the patient was declining transfer. She was monitored overnight and her H and H decreased to 10.7. She had not been receiving too much fluid according to the provider at [facility]. She had 2 positive fecal occult stool for blood. They reported she continued to have black tarry stools with fresh blood in the toilet, it was felt best to transfer the patient where GI coverage was available. Ms. Fernandez arrived as a direct admission from [facility]. She reports have a large hemorrhoid, giovanni red blood when wiping and reports that she is still having stools that has a beef red color. PAST MEDICAL HISTORY: 1. COPD, uses oxygen 2 L via nasal canula at bedtime as needed. 2. Peripheral neuropathy. 3. Anxiety. 4. Depression. 5. Chronic leukocytosis suspected to be secondary to splenectomy. 6. Hyperlipidemia. PAST SURGICAL HISTORY: 1. Status post splenectomy in 1976. 2. Status post right total hip hemiarthroplasty on October 27, 2017. 3. Status post left breast lumpectomy. 4. Status post section. HOME MEDICATIONS: Include: 1. Incruse Ellipta 62.5 mcg 1 inhalation daily. 2. Ventolin HFA 1 to 2 puffs inhalation every 4 to 6 hours as needed for shortness of breath or wheeze. 3. Atorvastatin 20 mg oral daily. 4. Propranolol 10 mg oral twice daily. 5. Aspirin 162 mg oral daily. 6. Klonopin 0.5 mg oral 3 times daily as needed for anxiety. 7. Gabapentin 600 mg oral 3 times daily. 8. Viibryd 40 mg oral daily. 9. Cymbalta 30 mg oral at bedtime. 10. Breo Ellipta 200/25 mcg 1 puff inhalation daily. 11. Omeprazole 20 mg oral twice daily. ALLERGIES: No known drug allergies. FAMILY HISTORY: Her mother passed at age 76 from coronary artery disease. She is unsure of her father's history. Her brother with a history of diabetes and mother with a history of breast cancer. SOCIAL HISTORY: She is a former smoker, quitting in March of 2011. Prior to that, she has approximately 40-year smoking history. She denies alcohol use. She quit drinking alcohol in 2011 also. She denies recreational drug use. Her sister, Jasmin will be her surrogate decision maker in the event she is unable to make decision for herself. REVIEW OF SYSTEMS: I performed an 11-point review of systems. All the pertinent positives and negatives are mentioned in the history of present illness. The remaining review of systems are negative. PHYSICAL EXAMINATION GENERAL APPEARANCE: She is alert, pleasant, and appears to be in no acute distress. VITAL SIGNS: Temperature 97.8, heart rate 63, respiratory rate 16, O2 sat 93% on room air, blood pressure 131/58. HEENT: Normocephalic, atraumatic. Pupils are equal and reactive to light. Extraocular movements are intact. RESPIRATORY: There is no accessory muscle use. The lungs are clear to auscultation bilaterally. CARDIOVASCULAR: Regular rate and rhythm. S1, S2 present. There are no murmurs , rubs, or gallops heard. ABDOMEN: Has diffuse tenderness. No rebound. No guarding. Bowel sounds present x4. Large, obese, soft. There is no hepatomegaly. EXTREMITIES: There is no lower extremity edema. DP and PT pulses are 2+ and symmetric. MUSCULOSKELETAL: There is no clubbing or cyanosis noted. She exhibits good strength in all extremities. NEUROLOGIC: She is alert and oriented x4. Cranial nerves II through XII are grossly intact. PSYCHOLOGIC: She is calm and cooperative. SKIN: There are no rashes or abnormalities seen. DIAGNOSTIC STUDIES/LABORATORY DATA: Labs from [facility] : Sodium 137, potassium 3.6, chloride 104, CO2 25, BUN 16, creatinine 1, glucose 106. White blood cell count 13.7, hemoglobin 38.5 with repeat hemoglobin 11.8, hematocrit 37.2, platelets 425. AST 15, ALT 17, alk phos 157. Troponin 0.017, peaking at 0.026 and back down to 0.019. CRP 18.4. Fecal occult blood positive. EKG from [facility] shows a sinus rhythm, no signs of acute ischemia. IMPRESSION: Ms. Fernandez is a 67-year-old female with past medical history significant for chronic obstructive pulmonary disease on supplemental oxygen, peripheral neuropathy, anxiety, depression, chronic leukocytosis suspect to be secondary to splenectomy, who presented to [facility] on February 14 with complaints of dark stools. She was admitted there and monitored, felt to have a gastrointestinal bleed and they did not have gastroenterology service, so she was transferred as a direct admission to [facility]. She will be admitted as an inpatient for gastrointestinal bleed. ASSESSMENT AND PLAN: 1. Dark colored stools with positive guaiac. The patient has varying stories. There is report of dark colored stools in addition to bright red blood. She is reported to have hemorrhoid, I suspected that this is contributing to the more red colored blood that she is reporting, but additionally she has had dark stools suspected to be secondary to an upper gastrointestinal bleed. She has been on aspirin 162 mg in October. She denies any other NSAID use. We are going to trend her H and Hs q.4 hours. She will be continued on Protonix drip. She will have normal saline at 100 mL an hour. We are going to repeat CBC now at her arrival and CMP. Dr. Otero is aware of her being here. He will consult on her tomorrow. 2. Chronic obstructive pulmonary disease. There are no signs of an acute exacerbation at this time. She can have her oxygen as needed. She will be continued on her home inhalers for her chronic obstructive pulmonary disease. 3. Anxiety/depression. Continue her on her home Klonopin as needed, Cymbalta. 4. Hyperlipidemia. She will be continued on her home statin. 5. Peripheral neuropathy. She will be continued on her home gabapentin. 6. DVT prophylaxis. She is a moderate risk, will have SCDs only in the setting of a gastrointestinal bleed. 7. Code status. Do not resuscitate. She has recently filled out a MOLST with her primary care provider. 8. Fluids, electrolytes, and nutrition. She can do a clear liquid diet. 9. Disposition. Inpatient. TIME SPENT: Time for this admission was approximately 60 minutes, greater than half of that was spent with the patient discussing medications, past medical history, the events leading up to her arrival today, and performing a physical examination. The case has been reviewed with the attending, Dr. Alvarez, who agrees with the plan of care. RELL NOBLE NP ADDENDUM: PROBLEM: Colitis. With the patient's findings of diffuse abdominal tenderness and her CT findings at [facility], wall thickening and subtle adjacent mesenteric changes noted adjacent to the cecum and proximal ascending colon with the differential including malignancy and colitis and in the setting of her being asplenic with an elevated leukocytosis, I would rather err on the side of caution and continue her on the Flagyl and ceftriaxone previously started at [facility] and then she was supposed to have stools collected there, but we can collect stool cultures here. We will continue the antibiotics until she is seen by GI and they have determined whether or not they feel she has colitis , but again with her being asplenic, I would rather err on the side of caution. Her bleed is likely diverticular and not colitis and today is day 2 of antibiotics. RELL NOBLE, FRANDY [id number]/CPS #: [id number]/CPS #: [id number] AMANDA
[2018-02-16] MEDS: Pantoprazole* 80 mg IN NS 80 MG/250 ML BAG IVPB SCH ×2 (02:52→07:52)
[2018-02-16 07:19] LABS: Hematocrit 39 % (35-47); Hemoglobin 12.3 g/dl (12.0-16.0)
--- NOTE | 2018-02-16 08:57 | CONS ---
CONSULTATION REPORT: DATE OF CONSULT: 02/16/18 REQUESTING PHYSICIAN: Dr. Alfonso. INDICATION: Melena. NARRATIVE: Mrs. Fernandez is a pleasant 67-year-old female who has a history of COPD, anxiety, surgical splenectomy who states on she developed crampy abdominal pain. She states that it felt like she was having contractions. She then passed dark stools. She was having loose stools. She denies eating anything out of the ordinary. She denies any injury or trauma. She does take a full strength aspirin every day. She has never had GI bleeding in the past. She went to [facility] on Saturday and was admitted to the hospital. They called us for a transfer due to the fact that they did not have any GI services. The patient had refused at that point yesterday. They felt that she was worsening because she was still passing blood per rectum and they requested a transfer again. She was transferred over last night. I saw her this morning at approximately 7:30 in the morning. She states she feels perfectly fine at this point. Her abdominal pain has resolved. No nausea, no vomiting, no fevers, no chills. She just had a bowel movement with a slight amount of bright red blood. She states she has a history of hemorrhoids. At [place], she did have a CT, which showed subtle wall thickening and mesenteric changes noted next to the proximal ascending colon and the cecum. She did not receive any blood at [place]. PAST MEDICAL HISTORY: Please see the HPI. PAST SURGICAL HISTORY: Includes splenectomy, hip surgery in October 2017. MEDICATIONS: Include: 1. Ellipta. 2. Ventolin. 3. Atorvastatin. 4. Propranolol. 5. Aspirin. 6. Klonopin. 7. Gabapentin. 8. Cymbalta. 9. Breo Ellipta. 10. Omeprazole. ALLERGIES: No known drug allergies. FAMILY HISTORY: Coronary artery disease. SOCIAL HISTORY: She quit smoking many years ago. No alcohol. REVIEW OF SYSTEMS: Twelve systems were reviewed and, other than that mentioned in the HPI, were unremarkable. PHYSICAL EXAM: On physical exam, temperature is 97.6, blood pressure is 144/48 , pulse is 80, respiratory rate of 18, O2 sat is 89%. General: Well-appearing female, sitting up in bed. Alert, oriented, pleasant, and fluent. HEENT: Mucous membranes are moist without lesions, ulcers, or exudate. Neck: Supple. Trachea is midline. Head is normocephalic, atraumatic. Heart: Regular rate and rhythm. Lungs: Clear to auscultation. Abdomen: Positive bowel sounds. Soft, obese, nontender, nondistended. No hepatosplenomegaly, masses, rebound, or guarding. Skin is warm and dry. DIAGNOSTIC STUDIES/LAB DATA: Labs of note: At 10:30 last night, her hemoglobin was 10.6; at 2 a.m., it was 11; this morning it was 12.3. Platelet count is normal. Chemistry shows a BUN of 5 and a creatinine of 0.77. ASSESSMENT AND PLAN: This is a pleasant 67-year-old female who is having likely an upper GI bleed. Likely, she has peptic ulcer disease secondary to her aspirin and she was having some bleeding from that. Her aspirin has been stopped. She has been on a Protonix drip. At this point, she is doing well. She is pain-free. Her hemoglobin has come up. She is eating. We did discuss possible options at this point including an upper endoscopy. She does need a colonoscopy at some point simply due to screening standpoint and her CT findings. She is understanding of this. She states that she really wants to go home. She does see a phosphatic fertilizer supervisor in [place], Dr. Mchugh. She states that she would call him first thing in the morning and arrange for close followup including bidirectional endoscopy with him. I am okay with this given the fact that her vital signs are very stable and her hemoglobin has increased. She should just avoid all aspirin. She should be sent home on twice-a-day omeprazole 40 mg a day and have a low threshold to re- present to the emergency room. She understands what to watch out for and will call Dr. Mchugh first thing in the morning. [id number]/[facility] #: [id number] [facility] HOSPITALPola
[2018-02-16] MEDS ORDERED: Umeclidinium 62.5 MDI(NF) MDI INH SCH (09:00)
[2018-02-16] MEDS ORDERED: Fluticasone/Vilanterol MDI(NF) 200/25 MDI INH SCH (09:00)
[2018-02-16] MEDS ORDERED: CMCS:Vilazodone (NF) 40 MG TAB PO SCH (09:00)
[2018-02-16] MEDS ORDERED: Gabapentin CAP(*) 400 MG PO SCH (09:00)
[2018-02-16] MEDS ORDERED: Propranolol TAB* 10 MG PO SCH (09:00)
[2018-02-16] MEDS ORDERED: cefTRIAXone VIAL(*) 500 MG in NS 0.9% 50 ML* 50 ML IVPB SCH (09:00)
[2018-02-16 09:13] VITALS: BP 148/67
--- NOTE | 2018-02-16 17:07 | DS ---
CC: Yon Urena; Dr. Eufemia Milligan * DISCHARGE SUMMARY: DATE OF ADMISSION: 02/15/18 DATE OF DISCHARGE: 02/16/18 PRIMARY CARE PROVIDER: Dr. Eufemia Milligan. NEEDLE LEADER: Yon Urena. PRIMARY DIAGNOSES: 1. Suspected gastrointestinal bleed. 2. Colitis. SECONDARY DIAGNOSES: 1. Chronic obstructive pulmonary disease. 2. Peripheral neuropathy. 3. Anxiety. 4. Depression. 5. Chronic leukocytosis. 6. Hyperlipidemia. 7. History of right hip hemiarthroplasty in October 2017. MEDICATIONS ON DISCHARGE: Include: 1. Breo Ellipta 200/25 1 puff daily. 2. Viibryd 40 mg daily. 3. Gabapentin 400 mg 3 times daily. 4. Cymbalta DR 30 mg at bedtime. 5. Clonazepam 0.5 mg 3 times a day as needed. 6. Propranolol 10 mg twice daily. 7. Atorvastatin 20 mg daily. 8. Albuterol 1 to 2 puffs every 4 to 6 hours as needed. 9. Incruse Ellipta 1 puff daily. 10. Omeprazole 20 mg twice daily. 11. Aspirin 81 mg daily. Please note the reduction in aspirin dose to 81 mg daily. PROCEDURES PERFORMED DURING HOSPITAL STAY: None. CONSULTATIONS DURING HOSPITAL STAY: Gastroenterology. PERTINENT LABORATORY DATA: Hemoglobin on presentation 10.6, on discharge 12.3. HISTORY OF PRESENT ILLNESS AND HOSPITAL COURSE: This is a pleasant 67-year-old female with past medical history as outlined in the history of present illness on the day of admission, presented to the hospital from [facility] with reported dark black stools as well as drop in her hemoglobin associated with CT evidence of colitis at their institution. They had no GI service and it was a concern that if she needed intervention, she should be in a place where it was readily available. She was transferred to this hospital where she had no additional black stools. Her stool on day of discharge was brown per the patient's report. She was tolerating a regular diet and ambulating. She had reported abdominal pain on presentation to [place], which has now resolved. Of note, she had continued on aspirin 162 mg daily since October for DVT prophylaxis for her right hip hemiarthroplasty. There was some concern that she may have developed a peptic ulcer from this increased dose of NSAIDs. She is also past through time for her next colonoscopy. She has outpatient fire engineer, Dr. Mchugh, who she would like to follow up with for any additional procedures including colonoscopy, evaluation of colitis, as well as possible endoscopy for evaluation of peptic ulcer. This was discussed at length with the patient. It was felt that the patient was a little upset about her transfer to [facility] as she is ultimately being discharged, felt it was unnecessary. Her for the process largely relies with the [facility]. I did try to explain to her the situation of her declining hemoglobin and concern for her declining hemoglobin prior to presentation and our concern for ongoing GI bleed. She did seem appease at the time of discharge. At followup, please; 1. Evaluate ongoing need for any aspirin. The patient did indicate that her primary care provider saw something that she was concerned about and stared her on aspirin. For this reason, I will continue 81 mg daily. 2. Please make sure the patient follows up with Dr. Mchugh for potential upper and lower endoscopies. 3. The patient is to continue on omeprazole 20 mg twice daily until discontinued by her primary care provider or Dr. Mchugh. Reasons to return to the hospital including but not limited to recurrent or worsening symptoms including dark black stools, bright red blood per rectum, lightheadedness, dizziness, chest pain, shortness of breath, dyspnea on exertion , and new or worsening abdominal pain, inability to obtain or tolerate medications discussed with the patient at length. TIME SPENT: Greater than 60 minutes was spent on discharge of this patient, greater than half was spent [id number] with the patient. [id number]/[facility] #: [id number] [facility] CENTERPola
[2018-02-16] MEDS ORDERED: DULoxetine DR CAP* 30 MG CAP.DR PO SCH (21:00)
== END 2018-02-16 10:55 | disposition home or self-care (01) ==
LOC: MED 20:10 → INTOOBSV 20:10
PROVIDERS: ADMIT Internal Medicine; ATTEND Internal Medicine
DX: K52.9 Noninfective gastroenteritis and colitis, unspecified (principal); J44.9 Chronic obstructive pulmonary disease, unspecified; G62.9 Polyneuropathy, unspecified; F41.9 Anxiety disorder, unspecified; F32.9 Major depressive disorder, single episode, unspecified; D72.829 Elevated white blood cell count, unspecified; E78.5 Hyperlipidemia, unspecified; Z96.641 Presence of right artificial hip joint; Z79.82 Long term (current) use of aspirin
CPT/HCPCS: 36415; 80053; 85014; 85018; 85025; 87045; 87046; 87899; 96374; 96375; A9270-GY; G0378; J0696; J3490